=== PATIENT | male | born 2005 | race Caucasian/White ===

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

== ENCOUNTER 2023-07-15 21:14 | Emergency (ER) | payer BC ==
[~2023-07-15] VITALS: Ht 190.5 cm; Wt 90.9 kg
[~2023-07-15 21:14] MED LIST: NORCO 325 MG-51 TA1 PO
[2023-07-15] MEDS ORDERED: CEPHALEXIN500 M2 PO (22:10)
[2023-07-15 22:15] VITALS: BP 109/62
== END 2023-07-15 22:15 | disposition home or self-care (01) ==
LOC: ED 21:14
DX: S61.210A Laceration without foreign body of right index finger without damage to nail, initial encounter (principal); W26.0XXA Contact with knife, initial encounter; Y99.0 Civilian activity done for income or pay

== ENCOUNTER → 2023-10-16 | Outpatient (CLI) | payer BC ==
[~2023-10-16] MED LIST changes: +CEPHALEXIN500 M2 PO
== END ==
LOC: RAD 12:39
DX: M25.562 Pain in left knee (principal)